=== PATIENT | male | born 1995 | race Caucasian/White ===

== ENCOUNTER 2017-12-26 18:54 | Emergency (ER) | payer SELFPAY ==
[~2017-12-26] VITALS: Ht 167.6 cm; Wt 76.4 kg
[2017-12-26 19:38] VITALS: BP 150/75
== END 2017-12-26 20:29 | disposition home or self-care (01) ==
LOC: EMS 18:58
DX: L30.9 Dermatitis, unspecified (principal); F41.9 Anxiety disorder, unspecified
CPT/HCPCS: 93005; 99283